=== PATIENT | male | born 1950 | race Caucasian/White ===

== ENCOUNTER 2016-04-25 16:24 | Emergency (ER) | payer OTHER ==
[~2016-04-25] VITALS: Ht 172.7 cm; Wt 122.7 kg
[2016-04-25] MEDS ORDERED: SOD CHLORIDE 0.9% 1,000 ML IV STA (16:29)
[2016-04-25 16:30] VITALS: Ht 172.7 cm; Wt 122.7 kg
[2016-04-25] MEDS ORDERED: DEXTROSE 50% 50 ML SYRINGE IV STA (16:54)
[2016-04-25] MEDS ORDERED: DEXTROSE 50% 50 ML SYRINGE ONE (16:55)
[2016-04-25 17:06] LABS: ADD SCAN DIFF NO
[2016-04-25 17:07] LABS: ABNORMAL IP MESSAGE 1; BASOPHILS % 0.1 % (0.0-2.0); EOSINOPHILS % 0.2 % (0.0-7.0); HEMATOCRIT 28.2 % (42.0-52.0); HEMOGLOBIN 8.8 g/dl (14.0-18.0); LYMPHOCYTES # 0.6 10^3/ul (0.8-2.9); LYMPHOCYTES % 6.9 % (15.0-51.0); MEAN CORPUSCULAR HEMOGLOBIN 26.3 pg (29.0-33.0); MEAN CORPUSCULAR HGB CONC 31.2 g/dl (32.0-37.0); MEAN CORPUSCULAR VOLUME 84.4 fl (82.0-101.0); MEAN PLATELET VOLUME 9.5 fl (7.4-10.4); MONOCYTE # 0.7 10^3/ul (0.3-0.9); MONOCYTES % 8.4 % (0.0-11.0); NEUTROPHIL # 7.1 10^3/ul (1.6-7.5); NEUTROPHILS % 83.8 % (39.0-77.0); PLATELET COUNT 282 10^3/UL (140-415); RED BLOOD COUNT 3.34 10^6/ul (4.70-6.10); RED CELL DISTRIBUTION WIDTH 15.5 % (11.5-14.5); WHITE BLOOD COUNT 8.5 10^3/ul (4.8-10.8)
[2016-04-25] MEDS ORDERED: INSU100V3 IJ (17:14)
[2016-04-25] MEDS ORDERED: OXYC-279 PO (17:14)
[2016-04-25] MEDS ORDERED: APIX5TAB PO (17:15)
[2016-04-25 17:20] LABS: CREATININE 1.06 mg/dl (0.61-1.24)
--- NOTE | 2016-04-25 19:59 | ERD ---
ER Documentation Chief Complaint Date/Time DATE: 04/25/16 TIME: 19:57 Chief Complaint BROUGHT IN VIA EMS DUE TO BS 27 AND LETHARGIC HPI Patient is a 65-year-old male with diabetes who presents for low blood sugar. The patient was brought in by ambulance. His sugar was 27. He was driving at the time. He says "I took too much insulin". This happened just prior to arrival. He said that he took his insulin at 4 AM. Upon review of old medical records this is the patient's first visit to the emergency department. ROS All systems reviewed and are negative except as per history of present illness. Medications Home Meds Reported Medications Apixaban* (Eliquis*) Unknown Strength Tablet, PO DAILY, TAB 04/25/16 Oxycodone HCl/Acetaminophen (Percocet 5-325 mg Tablet) 1 Each Tablet, 1 EACH PO QHS Y for SEVERE PAIN LEVEL 7-10, TAB 04/25/16 Insulin Regular, Human (Humulin R) 100 Unit/1 Ml Vial, 500 UNIT IJ TID, VIAL 04/25/16 Allergies Allergies: Coded Allergies: No Known Allergy (Unverified , 04/25/16) PMhx/Soc Hx Cardiac Disorders: Yes (HTN) Hx Miscellaneous Medical Probl: Yes (DM) Hx Alcohol Use: Yes Hx Substance Use: No Hx Tobacco Use: No Smoking Status: Never smoker FmHx Family History: diabetes Physical Exam Vitals Vital Signs Date Time Temp Pulse Resp B/P Pulse Ox O2 Delivery O2 Flow Rate FiO2 04/25/16 16:30 97.9 86 18 108/47 100 Physical Exam Const: Pale Head: Atraumatic Eyes: Normal Conjunctiva ENT: Normal External Ears, Nose and Mouth. Neck: Full range of motion..~ No meningismus. Resp: Clear to auscultation bilaterally Cardio: Regular rate and rhythm, no murmurs Abd: Soft, non tender, non distended. Normal bowel sounds Skin: Pale Back: No midline or flank tenderness Ext: No cyanosis, or edema Neur: Awake and alert Psych: Normal Mood and Affect Result Diagram: 04/25/16 1655 04/25/16 1655 Results 24 hrs Laboratory Tests Test 04/25/16 16:53 04/25/16 16:55 Bedside Glucose 66mg/dL Anion Gap 18 Basophils # 0.010^3/ul Basophils % 0.1% Blood Urea Nitrogen 27mg/dl Calcium Level 9.0mg/dl Carbon Dioxide Level 28mmol/L Chloride Level 96mmol/L Creatinine 1.06mg/dl Eosinophils # 0.010^3/ul Eosinophils % 0.2% Glucose Level 68mg/dl Hematocrit 28.2% Hemoglobin 8.8g/dl Lymphocytes # 0.610^3/ul Lymphocytes % 6.9% Mean Corpuscular Hemoglobin 26.3pg Mean Corpuscular Hemoglobin Concent 31.2g/dl Mean Corpuscular Volume 84.4fl Mean Platelet Volume 9.5fl Monocytes # 0.710^3/ul Monocytes % 8.4% Neutrophils # 7.110^3/ul Neutrophils % 83.8% Nucleated Red Blood Cells # 0.010^3/ul Nucleated Red Blood Cells % 0.0/100WBC Platelet Count 20529^3/UL Potassium Level 4.0mmol/L Red Blood Count 3.3410^6/ul Red Cell Distribution Width 15.5% Sodium Level 138mmol/L White Blood Count 8.510^3/ul Current Medications Medications (Trade) Dose Ordered Sig/Lisa Route PRN Reason Start Time Stop Time Status Last Admin Dose Admin Sodium Chloride (NS) 1,000 ml @ 1,000 mls/hr Q1H STAT IV 04/25/16 16:29 04/25/16 17:28 DC Dextrose (D50w Syringe) 50 ml ONCE STAT IV 04/25/16 16:54 04/25/16 16:55 DC 04/25/16 17:06 Dextrose (D50w Syringe) 50 ml STK-MED ONCE .ROUTE 04/25/16 16:55 04/25/16 16:56 DC Procedures/MDM Patient is a 65-year-old male with diabetes who presents with hypoglycemia. I believe he took too much insulin and did not eat enough. His blood sugar was 68 and he was given D50 as well as to turkey sandwiches. The patient feels much better. His hemoglobin is 8.8 showing anemia but he does not require transfusion at this time. The patient is now awake alert and oriented 3. He has a shoe puller with him who is going to take him home. I do not think the patient requires further workup or admission the hospital at this time. I believe outpatient management is appropriate. A DMV form was filled out because he lost consciousness while driving I told him he cannot drive until cleared by a doctor. Departure Diagnosis: Primary Impression: Anemia Anemia type: unspecified type Qualified Code: D64.9 - Anemia, unspecified type Additional Impression: Hypoglycemia Condition: Fair Patient Instructions: Anemia, Hypoglycemia (Low Blood Sugar) Referrals: Your doctor Additional Instructions: Call your primary care doctor TOMORROW for an appointment during the next 1-2 days.See the doctor sooner or return here if your condition worsens before your appointment time. SHIN CLEVELAND MD Apr 25, 2016 19:58
== END 2016-04-25 18:20 | disposition home or self-care (01) ==
LOC: E/R 16:24
DX: D64.9 Anemia, unspecified (principal); E11.649 Type 2 diabetes mellitus with hypoglycemia without coma; I10 Essential (primary) hypertension; Z79.4 Long term (current) use of insulin; Z79.01 Long term (current) use of anticoagulants
CPT/HCPCS: 36415; 80048; 82962; 85025; 96374; 99284; J7030